=== PATIENT | female | born 1930 | race Caucasian/White ===

== ENCOUNTER 2016-05-08 09:59 | Outpatient (CLI) | payer MEDICARE, BC ==
[2016-05-08 10:36] LABS: INR-International Normal Ratio 1.7; Prothrombin Time 20.5 SEC (12.0-14.7)
== END 2016-05-08 10:00 | disposition home or self-care (01) ==
LOC: MADLAB 09:59
PROVIDERS: ATTEND Family Medicine
DX: I48.2 Chronic atrial fibrillation (principal)
CPT/HCPCS: 36415; 85610

== ENCOUNTER 2016-06-05 10:21 | Outpatient (CLI) | payer MEDICARE, BC ==
[2016-06-05 10:46] LABS: INR-International Normal Ratio 1.6; Prothrombin Time 19.2 SEC (12.0-14.7)
== END 2016-06-05 10:22 | disposition home or self-care (01) ==
LOC: MADLAB 10:21
PROVIDERS: ATTEND Family Medicine
DX: I48.2 Chronic atrial fibrillation (principal)
CPT/HCPCS: 36415; 85610

== ENCOUNTER 2016-07-05 09:52 | Outpatient (CLI) | payer MEDICARE, BC ==
[2016-07-05 11:00] LABS: INR-International Normal Ratio 2.2; Prothrombin Time 24.2 SEC (12.0-14.7)
== END 2016-07-05 09:53 | disposition home or self-care (01) ==
LOC: MADLAB 09:52
PROVIDERS: ATTEND Family Medicine
DX: I48.91 Unspecified atrial fibrillation (principal)
CPT/HCPCS: 36415; 85610

== ENCOUNTER 2016-08-06 09:23 | Outpatient (CLI) | payer MEDICARE, BC ==
[2016-08-06 09:51] LABS: INR-International Normal Ratio 2.1; Prothrombin Time 23.6 SEC (12.0-14.7)
== END 2016-08-06 09:24 | disposition home or self-care (01) ==
LOC: MADLAB 09:23
PROVIDERS: ATTEND Family Medicine
DX: I48.91 Unspecified atrial fibrillation (principal)
CPT/HCPCS: 36415; 85610

== ENCOUNTER 2016-09-03 10:33 | Outpatient (CLI) | payer MEDICARE, BC ==
[2016-09-03 11:12] LABS: INR-International Normal Ratio 2.5; Prothrombin Time 26.6 SEC (12.0-14.7)
== END 2016-09-03 10:34 | disposition home or self-care (01) ==
LOC: MADLAB 10:33
PROVIDERS: ATTEND Family Medicine
DX: I48.91 Unspecified atrial fibrillation (principal)
CPT/HCPCS: 36415; 85610

== ENCOUNTER 2016-11-12 10:07 | Outpatient (CLI) | payer MEDICARE, BC ==
[2016-11-12 10:48] LABS: INR-International Normal Ratio 2.3; Prothrombin Time 26.1 SEC (12.0-14.7)
== END 2016-11-12 10:08 | disposition home or self-care (01) ==
LOC: MADLAB 10:07
PROVIDERS: ATTEND Family Medicine
DX: I48.91 Unspecified atrial fibrillation (principal)
CPT/HCPCS: 36415; 85610

== ENCOUNTER 2016-12-11 10:18 | Outpatient (CLI) | payer MEDICARE, BC ==
[2016-12-11 11:18] LABS: INR-International Normal Ratio 2.6
== END 2016-12-11 10:19 | disposition home or self-care (01) ==
LOC: MADLAB 10:18
PROVIDERS: ATTEND Family Medicine
DX: Z51.81 Encounter for therapeutic drug level monitoring (principal); I48.91 Unspecified atrial fibrillation; Z79.01 Long term (current) use of anticoagulants
CPT/HCPCS: 36415; 85610

== ENCOUNTER 2017-02-04 09:45 | Outpatient (CLI) | payer MEDICARE, BC ==
[2017-02-04 10:24] LABS: Prothrombin Time 23.2 SEC (12.0-14.7)
== END 2017-02-04 09:46 | disposition home or self-care (01) ==
LOC: MADLABBHPM 09:45
PROVIDERS: ATTEND Family Medicine
DX: I48.91 Unspecified atrial fibrillation (principal)
CPT/HCPCS: 36415; 85610

== ENCOUNTER 2017-04-11 12:58 | Outpatient (CLI) | payer MEDICARE, BC ==
[2017-04-11 13:34] LABS: INR-International Normal Ratio 1.8; Prothrombin Time 21.1 SEC (12.0-14.7)
== END 2017-04-11 12:59 | disposition home or self-care (01) ==
LOC: MADLAB 12:58
PROVIDERS: ATTEND Family Medicine
DX: I48.91 Unspecified atrial fibrillation (principal)
CPT/HCPCS: 36415; 85610

== ENCOUNTER 2017-06-06 10:29 | Outpatient (CLI) | payer MEDICARE, BC ==
[2017-06-06 10:54] LABS: INR-International Normal Ratio 2.6; Prothrombin Time 28.8 SEC (12.0-14.7)
== END 2017-06-06 10:30 | disposition home or self-care (01) ==
LOC: MADLAB 10:29
PROVIDERS: ATTEND Family Medicine
DX: I48.91 Unspecified atrial fibrillation (principal)
CPT/HCPCS: 36415; 85610

== ENCOUNTER 2017-06-09 09:53 | Outpatient (CLI) | payer MEDICARE, BC ==
[2017-06-09 10:15] LABS: INR-International Normal Ratio 2.5; Prothrombin Time 28.1 SEC (12.0-14.7)
== END 2017-06-09 09:54 | disposition home or self-care (01) ==
LOC: MADLAB 09:53
PROVIDERS: ATTEND Family Medicine
DX: I48.91 Unspecified atrial fibrillation (principal)
CPT/HCPCS: 36415; 85610

== ENCOUNTER 2017-08-05 10:22 | Outpatient (CLI) | payer MEDICARE, BC ==
[2017-08-05 17:04] LABS: INR-International Normal Ratio 1.9; Prothrombin Time 22.4 SEC (12.0-14.7)
== END 2017-08-05 10:23 | disposition home or self-care (01) ==
LOC: MADLAB 10:22
PROVIDERS: ATTEND Family Medicine
DX: I48.91 Unspecified atrial fibrillation (principal)
CPT/HCPCS: 36415; 85610

== ENCOUNTER 2017-09-03 13:19 | Outpatient (CLI) | payer MEDICARE, BC ==
[2017-09-03 15:56] LABS: INR-International Normal Ratio 1.9; Prothrombin Time 21.9 SEC (12.0-14.7)
== END 2017-09-03 13:20 | disposition home or self-care (01) ==
LOC: MADLAB 13:19
PROVIDERS: ATTEND Family Medicine
DX: I48.91 Unspecified atrial fibrillation (principal)
CPT/HCPCS: 36415; 85610

== ENCOUNTER 2017-10-08 10:04 | Outpatient (CLI) | payer MEDICARE, BC ==
[2017-10-08 10:27] LABS: INR-International Normal Ratio 2.1; Prothrombin Time 23.4 SEC (12.0-14.7)
== END 2017-10-08 10:05 | disposition home or self-care (01) ==
LOC: MADLAB 10:04
PROVIDERS: ATTEND Family Medicine
DX: I48.91 Unspecified atrial fibrillation (principal)
CPT/HCPCS: 36415; 85610

== ENCOUNTER 2017-10-25 10:11 | Emergency (ER) | payer MEDICARE, BC ==
[2017-10-25 10:35] LABS: #Basophils 0.1 thou/uL (0.0-0.2); #Eosinphils 0.1 thou/uL (0.0-0.7); #Lymphocytes 3.2 thou/uL (1.20-3.40); #Monocytes 0.8 thou/uL (0.11-0.59); #Neutrophils 3.7 thou/uL (1.40-6.50); %Basophils 0.9 % (0.0-1.0); %Eosinophils 1.1 % (0.0-10.0); %Lymphocytes 40.8 % (21.0-51.0); %Monocytes 9.8 % (0.0-10.0); %Neutrophils 47.3 % (42.0-75.0); Hemoglobin 12.1 g/dL (12.0-16.0); Mean Corpuscular HGB CONC 32.3 g/dL (32.0-36.0); Mean Corpuscular Hemoglobin 28.4 pg (27.0-31.0); Mean Platelet Volume 6.1 fL (7.4-10.4); Platelet Count 175 thou/uL (130-400); RBC Distribution Width 13.1 % (11.5-14.5); Red Blood Cell (RBC) Count 4.27 mill/uL (4.20-5.40); White Blood Cell (WBC) Count 7.8 thou/uL (4.8-10.8)
[2017-10-25 10:52] LABS: ALT (SGPT) 10 U/L (8-55); AST (SGOT) 17 U/L (5-34); Albumin 4.3 g/dL (3.4-4.8); Alkaline Phosphatase 82 U/L (40-150); Anion Gap 21 mmol/L (10-20); BUN (Urea Nitrogen) 18 mg/dL (9.8-20.1); Bilirubin, Total 0.6 mg/dL (0.2-1.2); CK (CPK) 51 U/L (29-168); Calc. Creatinine Clearance 0 mL/min (70-130); Calcium 9.4 mg/dL (7.8-10.44); Carbon Dioxide 20 mmol/L (23-31); Chloride 104 mmol/L (98-107); Estimated GFR-MDRD 50; Globulin 3.3 g/dL (2.4-3.5); Glucose 95 mg/dL (83-110); Potassium 3.8 mmol/L (3.5-5.1); Protein, Total 7.6 g/dL (6.0-8.3); Sodium 141 mmol/L (136-145)
[2017-10-25 10:53] LABS: CKMB 0.9 ng/mL (0-6.6); Troponin I 0.015 ng/mL (< 0.028)
--- NOTE | 2017-10-25 10:56 | RAD ---
CHEST 1 VIEW: Date: 10/25/17 HISTORY: Dyspnea. COMPARISON: Chest radiograph from 2011. FINDINGS: Heart size is enlarged. No pneumothorax. There are faint opacities in both lower lobes, may reflect small effusions, layering. Cardiac device is similar. No acute osseous abnormality. IMPRESSION: Hazy opacities both lower lobes may reflect small layering effusions. POS: [facility]
[2017-10-25 11:37] LABS: INR-International Normal Ratio 1.8; Prothrombin Time 21.2 SEC (12.0-14.7)
== END 2017-10-25 14:39 | disposition short-term general hospital (02) ==
LOC: MADERS 10:11
DX: R06.00 Dyspnea, unspecified (principal); R79.1 Abnormal coagulation profile; R94.31 Abnormal electrocardiogram [ECG] [EKG]; F03.90 Unspecified dementia, unspecified severity, without behavioral disturbance, psychotic disturbance, mood disturbance, and anxiety; I25.10 Atherosclerotic heart disease of native coronary artery without angina pectoris; I48.91 Unspecified atrial fibrillation; Z79.01 Long term (current) use of anticoagulants; Z79.899 Other long term (current) drug therapy
CPT/HCPCS: 71045; 80053; 82550; 82553; 83880; 84484; 85025; 85610; 93005; 94760